=== PATIENT | female | born 1965 | race Two or more races ===

== ENCOUNTER 2018-08-05 14:18 | Outpatient (CLI) | payer OTHER | END 2018-08-05 14:29 | disposition home or self-care (01) | LOC: RAD 14:18 | DX: M25.572 Pain in left ankle and joints of left foot (principal) ==

== ENCOUNTER → 2018-09-02 | Outpatient (CLI) | payer OTHER | END | disposition home or self-care (01) | LOC: MAMO-SONO 10:15 → SONOGRAMA 11:05 | DX: M25.572 Pain in left ankle and joints of left foot (principal); S93.432A Sprain of tibiofibular ligament of left ankle, initial encounter ==